=== PATIENT | male | born 1980 | race Caucasian/White ===

== ENCOUNTER 2021-04-29 09:15 | Emergency (ER) | payer SELFPAY ==
[~2021-04-29] VITALS: Ht 175.3 cm; Wt 87.1 kg
[2021-04-29 09:23] VITALS: BP 145/97
[2021-04-29] MEDS ORDERED: CLIN300C9 PO (10:02)
[2021-04-29] MEDS ORDERED: BACI1CAP6 PO (10:02)
[2021-04-29] MEDS ORDERED: BENZ9GEL MM (10:02)
--- NOTE | 2021-04-29 10:04 | PHYS DOC ---
Past History Past Surgical History: Other Additional Past Surgical Histo: neck surgery Alcohol Use: Occasionally General Adult EDM: Chief Complaint: DENTAL PROBLEM HPI: HPI: 40 yo M who denies any PMH presents to the ed with complaint of left lower tooth pain that started on April 23 stating " my whole jaw" is sore, states his tooth is loose. Asks if ibuprofen or Aleve is better for analgesia. Denies any blunt head/neck or dental trauma. Cannot recall cracking his tooth. States "I waited too late to see a dentist," asks for a list of dental clinics. Review of Systems: Review of Systems: Constitutional: Denies fever or chills Eyes: Denies change in visual acuity HENT: Denies nasal congestion or sore throat or earache Respiratory: Denies cough or shortness of breath Cardiovascular: Denies chest pain or edema GI: Denies, nausea, vomiting, Musculoskeletal: Denies back pain or joint pain Integument: Denies rash or diaphoresis Neurologic: Denies headache, neck stiffness, focal weakness or sensory changes Psychiatric: Denies depression or anxiety Allergies: Allergies: Allergies Coded Allergies Type Severity Reaction Last Updated Verified morphine Allergy Unknown 04/29/21 Yes Physical Exam: PE: Constitutional: Well developed, well nourished, no acute distress, non-toxic appearance. HENT: Normocephalic, atraumatic, tooth #19 slightly loose/no decay or fractures or pulp exposed, associated significant gingival swelling (size of a small grape) with no visible pustule, very little facial symmetry-suspect mild left lower cheek edema/no rash, no facial droop, normal TMs bilaterally Eyes: PERRLA, EOMI, conjunctiva normal, no discharge. Neck: Normal range of motion, supple, Cardiovascular: S1/2 present, regular rhythm Lungs & Thorax: Speaking in full sentences, bilateral equal chest rise, no tachypnea or increased work of breathing Abdomen: soft, no tenderness, Skin: Warm, dry, Extremities: No tenderness, no cyanosis, Neurologic: Alert and oriented X 3, normal motor function, normal sensory function, no focal deficits noted. [] Psychologic: Affect normal, judgement normal, mood normal. [] Current Patient Data: Vital Signs: Vital Signs Date Time Temp Pulse Resp B/P (MAP) Pulse Ox O2 Delivery O2 Flow Rate FiO2 04/29/21 09:23 97.7 82 20 145/97 98 EKG: EKG: [] Radiology/Procedures: Radiology/Procedures: [] Heart Score: C/O Chest Pain: No Risk Factors: Risk Factors: DM, Current or recent (<one month) smoker, HTN, HLP, family history of CAD, obesity. Risk Scores: Score 0 - 3: 2.5% MACE over next 6 weeks - Discharge Home Score 4 - 6: 20.3% MACE over next 6 weeks - Admit for Clinical Observation Score 7 - 10: 72.7% MACE over next 6 weeks - Early Invasive Strategies Course & Med Decision Making: Course & Med Decision Making Pertinent Labs and Imaging studies reviewed. (See chart for details) Concern for left lower 1st molar periapical abscess and dental subluxation, patient denies any blunt trauma. Patient afebrile with no nuchal rigidity, headache or neurologic deficits. Will prescribe clindamycin with probiotic and recommend [id number] analgesia. Will discharge home with strict ED return precautions were given for fever, headache, nuchal rigidity, neurologic d eficits, head or neck swelling or difficulties breathing. Encouraged urgent outpatient follow-up with PMD for routine care and dental clinic within 24 hours. Life-threatening processes were considered but are low suspicion at this time, given history, physical exam and ED workup. Pt was educated on all prescription medications and adverse effects. All patient's questions were ans wered and pt was stable at time of discharge. Life/limb-threatening differential includes but is not limited to, Chris's angina, infection (periodontal or peritonsillar abscess, retropharyngeal abscess, Vincents angina, ANUG, pharyngeal/liquor merchant/buccal space infection), trauma or fracture, dental fracture/subluxation/avulsion, dental bleeding or hemorrhage/DIC, pulpitis, alveolar osteitis or neoplasm I have spoken with the patient and/or caregivers. I explained the patient's condition, diagnoses and treatment plan based on the information available to me at this time. I have answered the patient and/or caregiver's questions and addressed any concerns. The patient and/or caregivers have a good understanding of patient's diagnosis, condition and treatment plan as can be expected at this point. Vital signs have been stable. Patient's condition is stable and appropriate for discharge from the emergency department. Patient will pursue further outpatient evaluation with primary care physician or other designated or consulting physician as outlined in the discharge instructions. The patient and/or caregivers are agreeable to this plan of care and follow-up instructions have been explained in detail. The patient and/or caregivers have received these instructions in written form and have expressed an understanding of the discharge instructions. The patient and/or caregivers are aware that any significant change of condition or worsening of symptoms should prompt immediate return to this or the closest emergency department or call to [email or web address] Hui Disclaimer: Ez Disclaimer: This electronic medical record was generated, in whole or in part, using a voice recognition dictation system. Departure Departure: Impression: Primary Impression: Periapical abscess Additional Impressions: Pain, dental Subluxation of tooth Disposition: HOME / SELF CARE / HOMELESS Condition: STABLE Referrals: PCP,NO (PCP) dental clinic follow up in 24 hours, pain control with OTC tylenol, ibuprofen and orajel Patient Instructions: Dental Abscess, Dental Pain Additional Instructions: EMERGENCY DEPARTMENT GENERAL DISCHARGE INSTRUCTIONS Thank you for coming to [facility] (ED) today and trusting us with you care. We trust that you had a positivie experience in our Emergency Department. If you wish to speak to the department management, you may call the director at [phone]. YOUR FOLLOW UP INSTRUCTIONS ARE FOLLOWS: 1. Do you have a private Doctor? If you do not have a private doctor, please ask for a resource list of physicians or clinics that may be able to assist you with follow up care. 2. The Emergency Physician has interpreted your x-rays. The X-Ray specialist will also review them. If there is a change in the findings, you will be notified in 48 hours when at all possible. 3. A lab test or culture has been done, your results will be reviewed and you will be notified if you need a change in treatment. ADDITIONAL INSTRUCTIONS AND INFORMATION: 1. Your care today has been supervised by a physician who is specially trained in emergency care. Many problems require more than one evaluation for a complete diagnosis and treatment. We recommend that you schedule your follow up appointment as recommended to ensure complete treatment of you illness or injury. If you are unable to obtain follow up care and continue to have a problem, or if your condition worsens, we recommend that you return to the ED. 2. We are not able to safely determine your condition over the phone nor are we able to give sound medical advice over the phone. For these safety reasons, if you call for medical advice we will ask you to come to the ED for further evaluation. 3. If you have any questions regarding these discharge instructions please call the ED at [phone]. SAFETY INFORMATION: In the interest of safety, wellness, and injury prevention; we encourage you to wear your sealbelt, if you smoke; quite smoking, and we encourage family to use a protective helmet for bicycling and other sporting events that present an increased risk for head injury. IF YOUR SYMPTOMS WORSEN OR NEW SYMPTOMS DEVELOP, OR YOU HAVE CONCERNS ABOUT YOUR CONDITION; OR IF YOUR CONDITION WORSENS WHILE YOU ARE WAITING FOR YOUR FOLLOW UP APPOINTMENT; EITHER CONTACT YOUR PRIMARY CARE DOCTOR, THE PHYSICIAN WHOSE NAME AND NUMBER YOU WERE GIVEN, OR RETURN TO THE ED IMMEDIATELY. Scripts Benzocaine (ANBESOL) 9 Gm Gel..gram. 9 GM MM QID for dental pain for 7 Days, #1 EACH Prov: RICHELLE SANCHEZ DO 04/29/21 Bacillus Coagulans (Probiotic) 1 Each Capsule.dr 1 EACH PO DAILY for periapical abscess for 14 Days, #14 CAP Prov: RICHELLE SANCHEZ DO 04/29/21 Clindamycin Hcl (CLINDAMYCIN HCL) 300 Mg Capsule 1 CAP PO TID for periapical abscess for 10 Days, #30 CAP Prov: RICHELLE SANCHEZ DO 04/29/21 RICHELLE SANCHEZ DO Apr 29, 2021 10:04
== END 2021-04-29 10:18 | disposition home or self-care (01) ==
LOC: ER 09:15
DX: S03.2XXA Dislocation of tooth, initial encounter (principal); K04.7 Periapical abscess without sinus; X58.XXXA Exposure to other specified factors, initial encounter; Y93.89 Activity, other specified; Y92.89 Other specified places as the place of occurrence of the external cause; Y99.8 Other external cause status
CPT/HCPCS: 99283